=== PATIENT | female | born 2000 | race Caucasian/White ===

== ENCOUNTER 2019-09-17 10:38 | Emergency (ER) | payer OTHER ==
[~2019-09-17] VITALS: Ht 160 cm; Wt 70.3 kg
[2019-09-17] MEDS ORDERED: TYLENOL WITH CO1 TA1 PO (12:15)
[2019-09-17] MEDS ORDERED: IBUPROFEN 800800 MG PO (12:15)
[2019-09-17 12:32] VITALS: BP 128/68
== END 2019-09-17 12:34 | disposition home or self-care (01) ==
LOC: M.ERS 10:38
DX: S93.691A Other sprain of right foot, initial encounter (principal); W10.8XXA Fall (on) (from) other stairs and steps, initial encounter; Y93.89 Activity, other specified; Y92.89 Other specified places as the place of occurrence of the external cause; Y99.8 Other external cause status

== ENCOUNTER 2021-02-18 14:46 | Emergency (ER) | payer BC ==
[~2021-02-18] VITALS: Ht 160 cm; Wt 65.8 kg
[~2021-02-18 14:46] MED LIST: IBUPROFEN 800800 MG PO; TYLENOL WITH CO1 TA1 PO
[2021-02-18 15:53] LABS: URINE BILIRUBIN NEGATIVE (Negative); URINE BLOOD NEGATIVE (Negative); URINE CLARITY CLEAR; URINE COLOR YELLOW; URINE GLUCOSE-RANDOM NEGATIVE (Negative); URINE LEUKOCYTES-REFLEX NEGATIVE (Negative); URINE NITRITE-REFLEX NEGATIVE (Negative); URINE PROTEIN NEGATIVE (Negative); URINE SPECIFIC GRAVITY 1.025 (1.005-1.030); URINE UROBILINOGEN 0.2 E.U./dl (0.2-1.0)
[2021-02-18 15:54] LABS: URINE KETONES 3+ (Negative)
[2021-02-18 16:48] LABS: HEMATOCRIT 40.8 % (37.0-47.0); HEMOGLOBIN 13.8 gm/dL (12.0-15.0); MCH 28.5 pg (26.0-34.0); MCHC 33.9 g/dL (28.0-37.0); MPV 8.8 fl. (7.2-11.1); NUCLEATED RBCS 0 /100WBC; PLATELET COUNT* 170 thou/uL (150-400); RBC 4.86 mil/uL (4.20-5.00); RDW-CV 13.3 % (10.5-14.5)
[2021-02-18 16:56] LABS: CALCIUM 8.7 mg/dL (8.5-10.1); CREATININE 0.4 mg/dL (0.6-1.3); POTASSIUM 3.8 mmol/L (3.5-5.1)
[2021-02-18 17:01] LABS: TOTAL BILIRUBIN 0.9 mg/dL (<0.1-1.0); TOTAL PROTEIN 6.8 g/dL (6.4-8.2)
[2021-02-18 17:30] LABS: ABSOLUTE LYMPHOCYTES 0.8 thou/uL (0.8-5.3); ABSOLUTE MONOCYTES 0.4 thou/uL (0.0-1.2); ABSOLUTE NEUTROPHILS 5.9 thou/uL (1.6-8.1)
[2021-02-18 17:33] LABS: PLATELET ESTIMATE ADEQUATE
[2021-02-18 19:10] VITALS: BP 116/70
== END 2021-02-18 19:10 | disposition home or self-care (01) ==
LOC: M.ERS 14:46
PROVIDERS: Physician Assistant
DX: O26.892 Other specified pregnancy related conditions, second trimester (principal); O99.332 Smoking (tobacco) complicating pregnancy, second trimester; R10.32 Left lower quadrant pain; Z3A.17 17 weeks gestation of pregnancy; F17.210 Nicotine dependence, cigarettes, uncomplicated